=== PATIENT | female | born 1955 | race American Indian/Alaskan Native ===

== ENCOUNTER 2017-04-12 13:04 | Outpatient (CLI) | payer OTHER ==
--- NOTE | 2017-04-12 16:11 | Mammography Report ---
BILATERAL DIGITAL SCREENING MAMMOGRAM with CAD: 04/12/17 13:04:00 CLINICAL: Routine screening. COMPARISON:02/11/16 FINDINGS: There are bilateral scatter fibroglandular densities. Several bilateral low density circumscribed nodules or lymph nodes are stable. However, new bilateral asymmetries require additional imaging.No architectural distortion or suspicious calcifications. IMPRESSION: Bilateral asymmetries requiring further workup. BI-RADS CATEGORY: 0 -- Additional Imaging Evaluation Required RECOMMENDATION: Recall for bilateral spot compression views and bilateral breast ultrasound if needed. ACR BI-RADS MAMMOGRAPHIC CODES: 0 = Needs additional imaging evaluation; 1 = Negative; 2 = Benign; 3 = Probably benign; 4 = Suspicious; 5 = Malignant; 6 = Known biopsy-proven malignancy COMMENT: 1. Dense breast tissue, i.e., adenosis, fibrocystic changes, etc., may obscure an underlying neoplasm. 2. Approximately 10% of cancers are not detected with mammography. 3. A negative mammography report should not delay biopsy if a clinically suspicious mass is present. COMMENT: Patient follow-up letters are generated via our [employer] application.
== END 2017-04-12 13:05 | disposition home or self-care (01) ==
LOC: SPVWC 13:04
PROVIDERS: ATTEND Obstetrics & Gynecology
DX: Z12.31 Encounter for screening mammogram for malignant neoplasm of breast (principal)
CPT/HCPCS: 77067; G0202

== ENCOUNTER 2017-06-05 10:33 | Outpatient (CLI) | payer OTHER ==
--- NOTE | 2017-06-05 12:52 | Ultrasound Report ---
Bilateral mammogram and bilateral breast ultrasound: Based on recent screening exam additional compression imaging of both breasts demonstrate that in the right breast just above and lateral to the nipple there is a persistent bilobed but relatively well circumscribed density measuring 11 mm. In the superolateral right breast there appears to be a persistent but very small nodular density measuring approximately 5 mm. Imaging of the right breast 2 cm from the nipple in the 11:00 location demonstrates a lobulated and somewhat irregular contoured hypoechogenicity with a couple small scattered echoes within it. There is no internal flow with color imaging. It measures 7 mm in greatest dimension. At 10:00 6 cm in the nipple there is an elongated hypoechoic nodule with an eccentric echo density containing blood flow. This measures 1 cm in maximum dimension. There are couple mammographic densities in this area which may correlate. Imaging of the left breast demonstrates an echo lucent circumscribed round nodule measuring 3.5 mm at 12:00 location. No solid mass is identified in the upper-outer breast. Impression: 1. The mammographic and ultrasound findings correlate in the right breast and most likely represent a cyst. 2. The ultrasound finding in the lateral right breast is consistent with a lymph node. 3. The mammographic nodule is only questionably correlated with the ultrasound finding of a cyst. No mammographic suspicious findings however related to the nodule. Recommendations: Repeat bilateral mammogram in 6 months to confirm stability of these probably benign nodules. Ultrasound based on additional findings or changes. BI-RADS CATEGORY: 3 = Probably benign ACR BI-RADS MAMMOGRAPHIC CODES: 0 = Needs additional imaging evaluation; 1 = Negative; 2 = Benign; 3 = Probably benign; 4 = Suspicious; 5 = Malignant; 6 = Known biopsy-proven malignancy COMMENT: 1. Dense breast tissue, i.e., adenosis, fibrocystic changes, etc., may obscure an underlying neoplasm. 2. Approximately 10% of cancers are not detected with mammography. 3. A negative mammography report should not delay biopsy if a clinically suspicious mass is present.
== END 2017-06-05 10:34 | disposition home or self-care (01) ==
LOC: SPVWC 10:33
PROVIDERS: ATTEND Obstetrics & Gynecology
DX: R92.8 Other abnormal and inconclusive findings on diagnostic imaging of breast (principal)
CPT/HCPCS: 76642; G0204; 77066

== ENCOUNTER 2017-10-23 09:46 | Outpatient (CLI) | payer OTHER ==
--- NOTE | 2017-10-24 12:56 | Mammography Report ---
BILATERAL DIGITAL DIAGNOSTIC MAMMOGRAM and RIGHT BREAST ULTRASOUND: 10/23/17 09:46:00 CLINICAL: Followup bilateral mammographic asymmetries and a right cyst by ultrasound. COMPARISON:06/05/17 FINDINGS: The breasts are mostly fatty with a few stable scattered fibroglandular densities. The previously described left asymmetry has resolved.A few scattered benign calcifications of the left breast. The previously described right periareolar asymmetry on the CC view is less prominent than on the prior exam. Ultrasound of the right breast was performed and demonstrated a smaller cystic cluster near the areola at 11 o'clock. It measures 4 x 2 x 3 mm compared to 7 x 6 x 4 mm on the last exam. No solid mass or shadowing. IMPRESSION: Negative mammogram and a smaller right benign periareolar cyst at 11 o'clock. BI-RADS CATEGORY: 2 - - Benign RECOMMENDATION: Routine mammographic screening in one year. ACR BI-RADS MAMMOGRAPHIC CODES: 0 = Needs additional imaging evaluation; 1 = Negative; 2 = Benign; 3 = Probably benign; 4 = Suspicious; 5 = Malignant; 6 = Known biopsy-proven malignancy COMMENT: 1. Dense breast tissue, i.e., adenosis, fibrocystic changes, etc., may obscure an underlying neoplasm. 2. Approximately 10% of cancers are not detected with mammography. 3. A negative mammography report should not delay biopsy if a clinically suspicious mass is present. COMMENT: Patient follow-up letters are generated by our [employer] application.
== END 2017-10-23 09:47 | disposition home or self-care (01) ==
LOC: SPVWC 09:46
PROVIDERS: ATTEND Surgery
DX: N60.01 Solitary cyst of right breast (principal); R92.1 Mammographic calcification found on diagnostic imaging of breast; R92.8 Other abnormal and inconclusive findings on diagnostic imaging of breast
CPT/HCPCS: 77066

== ENCOUNTER 2018-06-11 10:07 | Outpatient (CLI) | payer OTHER ==
--- NOTE | 2018-06-11 11:12 | Mammography Report ---
BILATERAL DIGITAL SCREENING MAMMOGRAM with CAD: 06/11/18 10:07:00 CLINICAL: Routine screening. COMPARISON:10/23/17 and 06/05/17 bilateral diagnostic mammograms and 04/12/17 bilateral screening mammogram. FINDINGS: The breasts are mostly fatty. Left asymmetries on both views require additional imaging.No architectural distortion or suspicious calcifications.The right breast is negative. IMPRESSION: Left asymmetries requiring further workup. BI-RADS CATEGORY: 0 -- Additional Imaging Evaluation Required RECOMMENDATION: Recall for left spot magnification CC and MLO views and left breast ultrasound if needed. ACR BI-RADS MAMMOGRAPHIC CODES: 0 = Needs additional imaging evaluation; 1 = Negative; 2 = Benign; 3 = Probably benign; 4 = Suspicious; 5 = Malignant; 6 = Known biopsy-proven malignancy COMMENT: 1. Dense breast tissue, i.e., adenosis, fibrocystic changes, etc., may obscure an underlying neoplasm. 2. Approximately 10% of cancers are not detected with mammography. 3. A negative mammography report should not delay biopsy if a clinically suspicious mass is present. COMMENT: Patient follow-up letters are generated via our [employer] application.
== END 2018-06-11 10:08 | disposition home or self-care (01) ==
LOC: SPVWC 10:07
PROVIDERS: ATTEND Surgery
DX: Z12.31 Encounter for screening mammogram for malignant neoplasm of breast (principal)
CPT/HCPCS: 77067

== ENCOUNTER 2018-06-14 09:18 | Outpatient (CLI) | payer OTHER ==
--- NOTE | 2018-06-14 10:40 | Mammography Report ---
LEFT DIGITAL DIAGNOSTIC MAMMOGRAM and LEFT BREAST ULTRASOUND: 06/14/18 09:18:00 CLINICAL: Recalled for asymmetry. COMPARISON:06/11/18 screening FINDINGS: ML and CC magnification views demonstrate persistent upper outer asymmetries. Ultrasound of the upper outer left breast demonstrates a benign cyst at 2 o'clock 5 cm from the nipple measuring 5 x 3 x 4 mm. In addition, 2 benign lymph nodes at 3 o'clock 11 cm from the nipple measure 1.7 x 1.0 1.8 cm and 0.8 x 0.6 x 0.8 cm. No solid mass or shadowing. IMPRESSION: A benign cyst and benign intramammary lymph nodes. BI-RADS CATEGORY: 2 - - Benign RECOMMENDATION: Routine mammographic screening in one year. ACR BI-RADS MAMMOGRAPHIC CODES: 0 = Needs additional imaging evaluation; 1 = Negative; 2 = Benign; 3 = Probably benign; 4 = Suspicious; 5 = Malignant; 6 = Known biopsy-proven malignancy COMMENT: 1. Dense breast tissue, i.e., adenosis, fibrocystic changes, etc., may obscure an underlying neoplasm. 2. Approximately 10% of cancers are not detected with mammography. 3. A negative mammography report should not delay biopsy if a clinically suspicious mass is present. COMMENT: Patient follow-up letters are generated via our [employer] application.
== END 2018-06-14 09:19 | disposition home or self-care (01) ==
LOC: SPVWC 09:18
PROVIDERS: ATTEND Physician Assistant
DX: N60.02 Solitary cyst of left breast (principal)

== ENCOUNTER 2019-06-17 10:05 | Outpatient (CLI) | payer OTHER ==
--- NOTE | 2019-06-17 11:09 | Mammography Report ---
DIGITAL SCREENING MAMMOGRAM WITH CAD, 06/17/2019 INDICATION: Routine screening mammography. TECHNIQUE: Digital bilateral 2D mammography was obtained in the craniocaudal and mediolateral obliq ue projections. This examination was interpreted with the benefit of Computer-Aided Detection analysi s. COMPARISON: 06/11/2018 and 08/20/2013 FINDINGS: Breast Density: There are scattered areas of fibroglandular density. There is no evidence of dominant mass, suspicious calcifications or architectural distortion in eithe r breast. IMPRESSION: No mammographic evidence of malignancy. Follow up recommendation: Routine yearly BI-RADS Category 2: Benign. A "normal" or negative report should not discourage follow up or biopsy of a clinically significant f inding. A written summary of these findings will be mailed to the patient. The patient will be entered into a mammography reporting system which will generate a reminder letter for the patient's next appointmen t at the appropriate interval. The [employer] recommends yearly mammograms starting at age 40 and continuing as l arlyn as a woman is in good health. Breast MRI is recommended for women with an approximate 20-25% or greater lifetime risk of breast cancer, including women with a strong family history of breast or ova philippe cancer or who have been treated for Hodgkin's disease. Signer Name: Suleman Vasquez MD Signed: 06/17/2019 11:05 AM Workstation Name: [id number]
== END 2019-06-17 10:06 | disposition home or self-care (01) ==
LOC: SPVWC 10:05
PROVIDERS: ATTEND Surgery
DX: Z12.31 Encounter for screening mammogram for malignant neoplasm of breast (principal)
CPT/HCPCS: 77067

== ENCOUNTER 2020-06-22 09:08 | Outpatient (CLI) | payer OTHER ==
--- NOTE | 2020-06-22 09:58 | Mammography Report ---
DIGITAL SCREENING MAMMOGRAM WITH CAD, 06/22/2020 INDICATION: Routine screening mammography. SCREENING MAMMO TECHNIQUE: Digital bilateral 2D mammography was obtained in the craniocaudal and mediolateral obliq ue projections. This examination was interpreted with the benefit of Computer-Aided Detection analysi s. COMPARISON: 06/11/2018 and 06/17/2019. FINDINGS: Breast Density: The breasts are almost entirely fatty. There is no evidence of dominant mass, suspicious calcifications or architectural distortion in the r ight breast. Benign-appearing nodularity bilaterally is stable. Left breast scarring is again noted. Benign skin calcifications on the left were also present previously. No new abnormality is seen. IMPRESSION: No mammographic evidence of malignancy or significant change. Follow up recommendation: Routine yearly BI-RADS Category 2: Benign. A "normal" or negative report should not discourage follow up or biopsy of a clinically significant f inding. A written summary of these findings will be mailed to the patient. The patient will be entered into a mammography reporting system which will generate a reminder letter for the patient's next appointmen t at the appropriate interval. The [employer] recommends yearly mammograms starting at age 40 and continuing as l arlyn as a woman is in good health. Breast MRI is recommended for women with an approximate 20-25% or greater lifetime risk of breast cancer, including women with a strong family history of breast or ova philippe cancer or who have been treated for Hodgkin's disease. Signer Name: Ethan Buck MD Signed: 06/22/2020 9:53 AM Workstation Name: [id number]
== END 2020-06-22 09:09 | disposition home or self-care (01) ==
LOC: SPVWC 09:08
PROVIDERS: ATTEND Surgery
DX: Z12.31 Encounter for screening mammogram for malignant neoplasm of breast (principal); N64.89 Other specified disorders of breast
CPT/HCPCS: 77067